=== PATIENT | female | born 1990 | race Caucasian/White ===

== ENCOUNTER 2020-03-31 08:09 | Emergency (ER) | payer OTHER ==
[~2020-03-31] VITALS: Ht 167.6 cm; Wt 74.8 kg
[~2020-03-31 08:09] MED LIST: ACET325 PO; AMOCLA500 PO; BCP'S; CEPH500; CEPH500 PO; CIPR500 PO; CYCL10 PO; Cyclobenzaprine5 MG PO; HYDACE5; IBUP200; IBUP600 PO; IBUP800 PO; IMPLANON; NAPR220 PO; Norco 5-325 Ta1 EACH PO; OXYACE5T PO; PROM25; PROM25 PO; RXPROM25S PR; SULTRIDS; TRAM50 PO; Ultram50 MG PO; Veetids 500500 MG PO
== END 2020-03-31 10:40 | disposition home or self-care (01) ==
LOC: ER 08:09
DX: S10.93XA Contusion of unspecified part of neck, initial encounter (principal); S20.224A Contusion of middle back wall of thorax, initial encounter; S20.222A Contusion of left back wall of thorax, initial encounter; R20.2 Paresthesia of skin; R20.0 Anesthesia of skin; F17.200 Nicotine dependence, unspecified, uncomplicated; Z88.5 Allergy status to narcotic agent; W10.9XXA Fall (on) (from) unspecified stairs and steps, initial encounter
CPT/HCPCS: 72070; 72125; 99284-25

== ENCOUNTER 2020-06-07 14:27 | Emergency (ER) | payer OTHER ==
[~2020-06-07] VITALS: Ht 167.6 cm; Wt 69.8 kg
[2020-06-07 15:41] LABS: BASOPHILS ABSOLUTE AUTO 0.05 K/mm3 (0.00-0.23); BASOPHILS PERCENT AUTO 1 % (0-2); EOSINOPHILS ABSOLUTE AUTO 0.03 K/mm3 (0.00-0.68); EOSINOPHILS PERCENT AUTO 1 % (0-6); Hematocrit 43.2 % (33.0-51.0); Hemoglobin 15.2 g/dL (11.5-16.0); IMMATURE GRAN ABSOLUTE AUTO 0.02 K/mm3 (0.00-0.10); IMMATURE GRAN PERCENT AUTO 0 % (0-1); LYMPHOCYTES ABSOLUTE AUTO 1.42 K/mm3 (0.84-5.20); LYMPHOCYTES PERCENT AUTO 22 % (21-46); MONOCYTES ABSOLUTE AUTO 0.51 K/mm3 (0.16-1.47); MONOCYTES PERCENT AUTO 8 % (4-13); Mean Corpuscular HGB Conc 35.2 g/dL (31.5-36.5); Mean Corpuscular Volume 91 fL (80-100); Mean Platelet Volume 10.8 fL (9.1-12.4); NEUTROPHILS ABSOLUTE AUTO 4.57 K/mm3 (1.96-9.15); NEUTROPHILS PERCENT AUTO 69 % (41-73); Platelet Count 279 K/mm3 (150-400); RDW Standard Deviation 40.1 fL (35.1-46.3); Red Blood Cell Count 4.75 M/mm3 (3.80-5.20)
[2020-06-07 16:07] LABS: Alanine Aminotransfer (ALT/SGP 26 U/L (12-78); Albumin, Blood 3.8 g/dL (3.4-5.0); Albumin/Globulin Ratio 1.1 (0.8-1.8); Alk Phos 105 U/L (50-136); Anion Gap 10 mmol/L (6-16); Aspartate Aminotrans (AST/SGOT 25 U/L (12-37); Bilirubin, Total 0.4 mg/dL (0.1-1.0); Blood Urea Nitrogen 4 mg/dL (8-24); Bun/Creatinine Ratio 6.7 (12.0-20.0); CO2, Blood 25 mmol/L (21-32); Calcium, Blood 8.9 mg/dL (8.5-10.1); Chloride, Blood 105 mmol/L (98-108); Globulin, Blood 3.4 g/dL (2.2-4.0); Glomerular Filtration Rate >60 (60-); Glucose, Blood 92 mg/dL (70-99); Potassium, Blood 3.9 mmol/L (3.5-5.5); Sodium, Blood 140 mmol/L (136-145); Total Protein, Blood 7.2 g/dL (6.4-8.2)
[2020-06-07] MEDS ORDERED: Zofran4 MG PO (19:07)
[2020-06-07] MEDS ORDERED: Percocet 5-3251 EACH PO (19:07)
== END 2020-06-07 19:22 | disposition home or self-care (01) ==
LOC: ER 14:27
PROVIDERS: Physician Assistant
DX: K85.90 Acute pancreatitis without necrosis or infection, unspecified (principal); F17.200 Nicotine dependence, unspecified, uncomplicated; Z88.5 Allergy status to narcotic agent
CPT/HCPCS: 36415; 76705; 80053; 83690; 85025; 96361; 96374; 96375; 99284-25; J1170; J1885; J2405; J7030